=== PATIENT | female | born 2000 | race Caucasian/White ===

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

== ENCOUNTER 2022-04-11 11:05 | Emergency (ER) | payer MEDICAID, SELFPAY ==
[2022-04-11 11:13] VITALS: BP 145/83; PULSE 77; RESP 16; TEMP 36.6; O2SAT 98
--- NOTE | 2022-04-11 11:15 | DI.RAD_ITS ---
Exam(s) XR KNEE RT 4V AP,LAT,JESIKA,PAT EXAM: XR KNEE RT 4V AP,LAT,JESIKA,PAT CLINICAL HISTORY: Right knee pain, r/o fx. TECHNIQUE: 2D digital imaging was performed. COMPARISON: No exams were available for comparison FINDINGS: Four views No evidence of fracture. No effusion. No degenerative changes. No osseous lesions. IMPRESSION: No significant radiographic findings. DATA REPOSITORY: RADIATION DOSE DELIVERED:
--- NOTE | 2022-04-11 12:53 | ED.GENADUL_ITS ---
Discharge Plan Disposition Patient Disposition: HOME Condition: Stable Discharge Details Clinical Impression: Right knee pain Primary Care Provider: Sendy Gaona ED Provider: Ayde Pollard Home Meds and New Rx's Prescriptions: Continued Daily Multiple For Women 18 mg iron-400 mcg-500 mg Ca tablet PO cyanocobalamin (vitamin B-12) 1,000 mcg capsule 1,000 mcg PO DAILY loratadine [Allergy Relief (loratadine)] 5 mg/5 mL solution 10 mg PO DAILY PRN norethindrone ac-eth estradiol [10/13 (21)] 1-20 mg-mcg tablet 1 tab PO DAILY Qty: 63 1RF Nexplanon 68 mg Implant SUBDERMAL Discharge Instructions Instructions: Knee Pain (ED) Additional Instructions: Your x-ray today is reassuring and shows no evidence of acute concerning or significant findings. Your symptoms may be secondary to a knee sprain. It is recommended to rest, ice and elevate your right knee is much as possible. Alternate tylenol and motrin as needed and directed for pain. If your symptoms do not improve or worsen or you develop fever, redness or pain in your lower leg, return to the emergency department for further evaluation. Follow-up with your primary care doctor in 1 week and for referral to orthopedics if your symptoms do not improve or worsen. Return to the emergency department with any worsening or new concerning symptoms. Stand Alone Forms: Work Release Referrals: Edgar Farmer MD [ [facility] STAFF PHYSICIAN] - Discharge Data Discharge Date/Time-TO BE ENTERED AT DEPARTURE: 04/11/22 13:56 Discharge Physician: Adye Pollard Medical Decision Making 22-year-old female presents with right knee pain since yesterday. 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 She took ibuprofen without relief. Patient referred for x-ray upon arrival to triage which was unremarkable. Her knee appears normal to inspection without evidence of trauma, cellulitis or rash. She has no calf tenderness or posterior knee tenderness. She is neurovascularly intact without ligamentous laxity. She was given an Mt wrap and advised to rest, ice and elevate. She was given orthopedic follow-up information as needed. Discussed that her symptoms do not appear consistent with DVT at this time but if her symptoms change or worsen including fever, calf pain, redness or swelling, to return to the emergency department for further evaluation. Medical Records Medical records reviewed: Yes I reviewed the patient's medical records. Imaging Data Radiologic Study: Radiologist's impression: XR KNEE RT 4V AP,LAT,JESIKA,PAT CLINICAL HISTORY: ? Right knee pain, r/o fx. ? TECHNIQUE:? 2D digital imaging was performed. COMPARISON:? No exams were available for comparison FINDINGS: Four views No evidence of fracture.? No effusion.? No degenerative changes.? No osseous lesions. IMPRESSION: No significant radiographic findings. HPI General Mode of arrival: ambulatory . Date/Time Provider Initiated Documentation: 04/11/22 11:18 . Limitations to Documentation: no limitations . Information obtained by: patient . HPI Narrative: Patient is a 22-year-old female with a history of developmental delay and sleep apnea who presents with right knee pain since yesterday. 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 She states the pain is mostly in her right anterior knee but also has some pain in her right lateral thigh. She denies any calf pain. She states it hurts most with weightbearing, walking and bending. She states she took ibuprofen without relief. Related Data Home Medications Medication Instructions Recorded Confirmed etonogestrel 68 mg subdermal subdermal 03/29/20 11/02/20 implant (Nexplanon) cyanocobalamin (vitamin B-12) 1,000 mcg PO DAILY 01/23/22 04/11/22 1,000 mcg capsule loratadine 5 mg/5 mL oral solution 10 mg PO DAILY PRN 01/23/22 04/11/22 (Allergy Relief (loratadine)) multivit-iron 18 mg-folic acid 400 tab PO 01/23/22 mcg-calcium 500 mg-minerals tablet (Daily Multiple For Women) norethindrone acetate 1 mg-ethinyl 1 tab PO DAILY #63 tabs 01/23/22 04/11/22 estradiol 20 mcg tablet () Previous Rx's Medication Instructions Recorded norethindrone acetate 1 mg-ethinyl 1 tab PO DAILY #63 tabs 01/23/22 estradiol 20 mcg tablet () Allergies Allergy/AdvReac Type Severity Reaction Status Date / Time amoxicillin trihydrate Allergy Intermediate RASH Verified 04/11/22 11:16 [From Augmentin] cephalexin Allergy Intermediate RASH Verified 04/11/22 11:16 potassium clavulanate Allergy Intermediate RASH Verified 04/11/22 11:16 [From Augmentin] clindamycin AdvReac Intermediate vomiting Verified 04/11/22 11:16 lactose AdvReac Diarrhea Verified 04/11/22 11:16 General Stated Complaint: Orthopedic WARREN: 4 Review of Systems All systems reviewed & are unremarkable except as noted in HPI and below Constitutional Constitutional: Reports as per HPI, Denies chills and Denies fever(s) Eyes Eyes: Denies blurry vision ENT Ears, Nose, Mouth, and Throat: Denies dizziness, Denies sore throat and Denies throat swelling Cardiovascular Cardiovascular: Denies chest pain and Denies dyspnea Respiratory Respiratory: Denies cough and Denies dyspnea Gastrointestinal Gastrointestinal: Denies abdominal pain, Denies diarrhea and Denies vomiting Genitourinary Genitourinary: Denies hematuria and Denies dysuria Musculoskeletal Musculoskeletal: Denies back pain and Denies numbness Comments: R knee pain Integumentary/Breasts Skin/Breast: Denies lesions and Denies rash Neurologic Neurologic: Denies dizziness, Denies localized weakness and Denies numbness Allergic/Immunologic Allergic/Immunologic: Denies throat swelling PFSH All Active Problems (Updated 04/11/22 @ 13:39 by Ayde Pollard DO) Right knee pain (Acute) Back pain (Acute) Presence of subdermal contraceptive implant (Acute) Contraceptive management (Acute) Dysmenorrhea (Acute) iniitation OCPs Jun 2019 BMI (body mass index), pediatric, 95-99% for age (Acute 06/18/15) Developmental delay (Acute 04/08/13) intellectual disability. IQ testing 69 (01/05) Sleep apnea (Acute 03/18/15) sleep study 12/06 - CPAP Medical History Developmental delay Obstructive sleep apnea Surgical History Tonsillectomy and adenoidectomy Tooth extraction Family History (Updated 01/24/22 @ 09:09 by Jasmine Shea NP) Mother Learning disability Siblings ADHD Brother. 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 Working smoke detector in home: Yes Fire extinguisher in home: Yes Carbon monox detector in home: Yes Firearms in home: No Do you feel safe at home: Yes Do you feel safe in your relationship?: Yes Female Reproductive History Menstrual control method: implanted History History 0 Para Hx # Term Pregnancies Multiple births Hx # Pregnancies Ectopic pregnancies AB induced Hx Number of Living Children AB spontaneous Exam Const General: cooperative, healthy appearing and no acute distress Orientation: alert, awake and oriented x3 HENMT Head: normal to inspection Mouth: oral mucosae normal Eyes General: appearance normal, both eyes and all related structures Neck Neck: normal visual inspection Resp Effort & Inspection: normal respiratory effort and able to speak in complete sentences Auscultation: clear to auscultation bilaterally Cardio Rate: regular rate Skin General skin exam: no rashes or lesions noted Neuro General: patient alert, patient awake and patient oriented x3 Motor: muscle tone normal throughout Extrem Other: She has significant tenderness to palpation of her right anterior knee but her knee appears normal to inspection without erythema, edema, ecchymosis, crepitus, rash or lesions. She has pain with flexion and extension of her knee but no obvious ligamentous laxity. No pain with valgus or varus stress. Negative anterior and posterior drawer test. No tenderness to palpation to posterior knee. Right thigh and calf are normal to inspection. There is no right calf tenderness. Right DP and PT pulses are intact. Psych Appearance: grossly normal Affect: normal affect Course Vital Signs Vital signs: Vital Signs Temperature 97.8 F 04/11/22 11:13 Pulse 77 04/11/22 11:13 Respiratory Rate 16 04/11/22 11:13 Blood Pressure 145/83 H 04/11/22 11:13 Pulse Oximetry 98 04/11/22 11:13 Temperature 97.8 F 04/11/22 11:13 Temperature Source Oral 04/11/22 11:13 Pulse 77 04/11/22 11:13 Respiratory Rate 16 04/11/22 11:13 Respiratory Effort 04/11/22 11:13 Blood Pressure 145/83 H 04/11/22 11:13 Blood Pressure Position Sitting 04/11/22 11:13 Pulse Oximetry 98 04/11/22 11:13 Oxygen Delivery Method Room Air 04/11/22 11:13 Oxygen Flow Rate 0 04/11/22 11:13 Pain Level 8 04/11/22 11:13 Lab/Test Results Lab/Test Results: POC- Test(urine) Negative
--- NOTE | 2022-04-11 13:25 | CMPROGNOTE_ITS ---
- If Service Date Differs Date of service: 04/11/22 Time of Service: 13:26 Care Management Progress Note SBIRT Screen. Pt reports no substance use other than one drink in the past year and no nicotine. Pt screens positive for anxiety (ELIAZAR 11) and depression (PHQ- 9: 13) with no current suicidal ideation. Pt notes coping skills such as taking a deep breath and calming down as well as staying busy with sports and work. Pt notes she has made significant progress in counseling which was or dered by the court. Pt states she feels she is doing well and needs no further support. She states she has the 24 hour crisis line for support as needed.
== END 2022-04-11 13:56 | disposition home or self-care (01) ==
PROVIDERS: Emergency Provider Physician Assistant; PCP Nurse Practitioner Family
DX: M25.561 Pain in right knee (principal)
CPT/HCPCS: 81025; 99283; 73564

== ENCOUNTER 2022-04-28 13:39 | Emergency (ER) | payer OTHER, SELFPAY ==
[2022-04-28 13:43] VITALS: BP 154/100; PULSE 96; RESP 18; TEMP 36.4; O2SAT 99
--- NOTE | 2022-04-28 15:08 | ED.GENADUL_ITS ---
Discharge Plan Disposition Patient Disposition: HOME Condition: Stable Discharge Details Clinical Impression: Second degree burn of right thigh, Second degree burn of great toe of right foot, First degree burn of right thigh Primary Care Provider: Sendy Gaona ED Provider: Ayde Pollard Home Meds and New Rx's Prescriptions: Continued Daily Multiple For Women 18 mg iron-400 mcg-500 mg Ca tablet PO cyanocobalamin (vitamin B-12) 1,000 mcg capsule 1,000 mcg PO DAILY loratadine [Allergy Relief (loratadine)] 5 mg/5 mL solution 10 mg PO DAILY PRN norethindrone ac-eth estradiol [10/13 (21)] 1-20 mg-mcg tablet 1 tab PO DAILY Qty: 63 1RF Nexplanon 68 mg Implant SUBDERMAL Discharge Instructions Instructions: Superficial Burn (ED), Second-Degree Burn (ED), Acute Wound Care (ED) Additional Instructions: Apply the Silvadene cream to the affected areas once daily and cover with dressing. Be sure to keep the dressings clean and dry. Keep your right foot elevated as much as possible. Follow-up with your primary care doctor in 1 week. Return to the emergency department with any worsening or new concerning symptoms such as fever, worsening redness, swelling or pain. Stand Alone Forms: Work Release Discharge Data Discharge Date/Time-TO BE ENTERED AT DEPARTURE: 04/28/22 15:38 Discharge Physician: Ayde Pollard Medical Decision Making 22-year-old female presents with burn to her right anterior leg and right great toe after spilled hot honey glaze at work 2 hours ago. There is an approximate 3 x 4 cm area of erythema consistent with first-degree burn with 2 small blisters consistent with second-degree burn on her right anterior thigh. There are other small 1-2cm areas of erythema consistent with first-degree burn on her right anterior thigh. There is a 3x3 millimeter intact blister to her right great toe on the dorsal surface with minimal surrounding erythema. Offered to debride blister but patient declines. Burn was dressed in Silvadene and nonadherent dressings. She was given Silvadene to go. Her tetanus is up-to-date. She requested a work note. She is advised to keep molina clean and dry and to apply Silvadene once daily. Advised to follow up with the primary care doctor for re-evaluation. Usual and customary return precautions given prior to discharge. Medical Records Medical records reviewed: Yes I reviewed the patient's medical records. HPI General Mode of arrival: ambulatory . Date/Time Provider Initiated Documentation: 04/28/22 13:57 . Limitations to Documentation: no limitations . Information obtained by: patient . HPI Narrative: Patient is a 22-year-old female who presents with burn to the right thigh and right great toe after she spilled hot honey glazed from work on her leg 2 hours ago. Patient states she is concerned about a blister forming. She states her tetanus is up-to-date. Related Data Home Medications Medication Instructions Recorded Confirmed etonogestrel 68 mg subdermal subdermal 03/29/20 11/02/20 implant (Nexplanon) cyanocobalamin (vitamin B-12) 1,000 mcg PO DAILY 01/23/22 04/28/22 1,000 mcg capsule loratadine 5 mg/5 mL oral solution 10 mg PO DAILY PRN 01/23/22 04/28/22 (Allergy Relief (loratadine)) multivit-iron 18 mg-folic acid 400 tab PO 01/23/22 mcg-calcium 500 mg-minerals tablet (Daily Multiple For Women) norethindrone acetate 1 mg-ethinyl 1 tab PO DAILY #63 tabs 01/23/22 04/11/22 estradiol 20 mcg tablet () Previous Rx's Medication Instructions Recorded norethindrone acetate 1 mg-ethinyl 1 tab PO DAILY #63 tabs 01/23/22 estradiol 20 mcg tablet () Allergies Allergy/AdvReac Type Severity Reaction Status Date / Time amoxicillin trihydrate Allergy Intermediate RASH Verified 04/28/22 13:47 [From Augmentin] cephalexin Allergy Intermediate RASH Verified 04/28/22 13:47 potassium clavulanate Allergy Intermediate RASH Verified 04/28/22 13:47 [From Augmentin] clindamycin AdvReac Intermediate vomiting Verified 04/28/22 13:47 lactose AdvReac Diarrhea Verified 04/28/22 13:47 General Stated Complaint: Burn WARREN: 3 Review of Systems All systems reviewed & are unremarkable except as noted in HPI and below Constitutional Constitutional: Reports as per HPI, Denies chills and Denies fever(s) Eyes Eyes: Denies blurry vision ENT Ears, Nose, Mouth, and Throat: Denies dizziness, Denies sore throat and Denies throat swelling Cardiovascular Cardiovascular: Denies chest pain and Denies dyspnea Respiratory Respiratory: Denies cough and Denies dyspnea Gastrointestinal Gastrointestinal: Denies abdominal pain, Denies diarrhea and Denies vomiting Genitourinary Genitourinary: Denies hematuria and Denies dysuria Musculoskeletal Musculoskeletal: Denies back pain and Denies numbness Integumentary/Breasts Skin/Breast: Denies lesions and Denies rash Comments: burn to R thigh and R great toe Neurologic Neurologic: Denies dizziness, Denies localized weakness and Denies numbness Allergic/Immunologic Allergic/Immunologic: Denies throat swelling PFSH All Active Problems (Updated 04/28/22 @ 15:21 by Ayde Pollard DO) Right knee pain (Acute) Second degree burn of right thigh (Acute) Second degree burn of great toe of right foot (Acute) First degree burn of right thigh (Acute) Back pain (Acute) Presence of subdermal contraceptive implant (Acute) Contraceptive management (Acute) Dysmenorrhea (Acute) iniitation OCPs Jun 2019 BMI (body mass index), pediatric, 95-99% for age (Acute 06/18/15) Developmental delay (Acute 04/08/13) intellectual disability. IQ testing 69 (01/05) Sleep apnea (Acute 03/18/15) sleep study 12/06 - CPAP Medical History Developmental delay Obstructive sleep apnea Surgical History Tonsillectomy and adenoidectomy Tooth extraction Family History (Updated 01/24/22 @ 09:09 by Jasmine Shea NP) Mother Learning disability Siblings ADHD Brother. Maternal Grandmother Pancreatic cancer Social History (Updated 01/24/22 @ 08:50 by Jasmine Shea NP) Smoking/Tobacco Use Status: Never Second Hand Exposure: Yes (Mom smokes outside) Smoking risk assessment performed?: Yes Alcohol Intake: current Alcohol Intake frequency: holidays/special occasions only Drug use: Never Substance use type: does not use Household members: other Details: Mom and brother Education Level: high school Details: graduated high school last year Pets and animals: Yes (1 dog 1 cat) Pets and animals: cat(s) and dog(s) Sexually active: No Seatbelt use: always Helmet use: Yes 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 Working smoke detector in home: Yes Fire extinguisher in home: Yes Carbon monox detector in home: Yes Firearms in home: No Do you feel safe at home: Yes Do you feel safe in your relationship?: Yes Female Reproductive History Menstrual control method: implanted History History 0 Para Hx # Term Pregnancies Multiple births Hx # Pregnancies Ectopic pregnancies AB induced Hx Number of Living Children AB spontaneous Exam Const General: cooperative and no acute distress Orientation: alert, awake and oriented x3 HENMT Head: normal to inspection Mouth: oral mucosae normal Eyes General: appearance normal, both eyes and all related structures Neck Neck: normal visual inspection Resp Effort & Inspection: normal respiratory effort and able to speak in complete sentences Cardio Rate: regular rate Neuro General: patient alert, patient awake and patient oriented x3 Motor: muscle tone normal throughout Extrem General: normal to inspection and full ROM Upper/lower leg/hip images: 1. 3 x 4 cm area of erythema with 3 x 3 mm intact blisters in center. Ankle/foot/toe images: 1. 3 x 3 mm intact blister with surrounding erythema approximately 1 cm. Other: There are also a few patchy 1 to 2 cm areas of erythema consistent with first- degree burn on right anterior thigh. Psych Appearance: grossly normal Affect: normal affect Course Vital Signs Vital signs: Vital Signs Temperature 97.5 F L 04/28/22 13:43 Pulse 96 H 04/28/22 13:43 Respiratory Rate 18 04/28/22 13:43 Blood Pressure 154/100 H 04/28/22 13:43 Pulse Oximetry 99 04/28/22 13:43 Temperature 97.5 F L 04/28/22 13:43 Temperature Source Temporal Artery Scan 04/28/22 13:43 Pulse 96 H 04/28/22 13:43 Respiratory Rate 18 04/28/22 13:43 Respiratory Effort Non-Labored 04/28/22 13:48 Blood Pressure 154/100 H 04/28/22 13:43 Blood Pressure Position Sitting 04/28/22 13:43 Pulse Oximetry 99 04/28/22 13:43 Oxygen Delivery Method Room Air 04/28/22 13:43 Oxygen Flow Rate 0 04/28/22 13:43
[2022-04-28] MEDS: Silver sulfaDIAZINE 1% 25 GM TUBE (15:40)
== END 2022-04-28 15:38 | disposition home or self-care (01) ==
PROVIDERS: Emergency Provider Physician Assistant; PCP Nurse Practitioner Family
DX: T24.211A Burn of second degree of right thigh, initial encounter (principal); T25.231A Burn of second degree of right toe(s) (nail), initial encounter; T31.0 Burns involving less than 10% of body surface; X10.1XXA Contact with hot food, initial encounter; Y99.0 Civilian activity done for income or pay
CPT/HCPCS: 16020; 99283; 99284

== ENCOUNTER 2022-12-11 08:25 | Emergency (ER) | payer MEDICAID, SELFPAY ==
[2022-12-11 08:44] VITALS: BP 114/99; PULSE 88; RESP 16; TEMP 36.6; O2SAT 99
--- NOTE | 2022-12-11 09:01 | ED.GENADUL_ITS ---
Discharge Plan Disposition Patient Disposition: Home Condition: Stable Discharge Details Clinical Impression: Acute otitis media, right, URI (upper respiratory infection) Primary Care Provider: Page William ED Provider: Freddie Modi Home Meds and New Rx's Prescriptions: New doxycycline hyclate 100 mg tablet 100 mg PO BID Qty: 14 0RF Continued Daily Multiple For Women 18 mg iron-400 mcg-500 mg Ca tablet 1 tab PO DAILY cyanocobalamin (vitamin B-12) 1,000 mcg capsule 1,000 mcg PO DAILY loratadine [Allergy Relief (loratadine)] 5 mg/5 mL solution 10 mg PO DAILY PRN Discontinued Nexplanon 68 mg Implant SUBDERMAL Patient Comments: patient does currently have this implant Discharge Instructions Instructions: Ear Infection (ED), Upper Respiratory Infection (ED) Additional Instructions: Please take ibuprofen over the counter. Take 600mg by mouth every 6 hours as needed for your discomfort and congestion over the next 5 days. I expect your ear discomfort and symptoms will improve over the next 48 hours. If ear pain worsens and is not improving over the next 2 days, start antibiotic. Complete course of antibiotic if you start it. Please contact your primary care physician to arrange follow-up. Return to the ER immediately for any worsening or new concerning symptoms. Stand Alone Forms: Work Release Referrals: Page William MD [Primary Care Provider] - Medical Decision Making 22-year-old female here with 3 days of right ear fullness, rhinorrhea and sinus congestion. Suspect viral URI. Plan for NSAIDs. If anti-inflammatories do not work, I will provide prescription for antibiotic. Patient has multiple antibiotic allergies. Doxycycline written to be used only as needed if symptoms not improving after 48 hours of NSAIDs. Usual customary discharge instructions were reviewed with the patient. HPI General Mode of arrival: ambulatory . Date/Time Provider Initiated Documentation: 12/11/22 08:49 . Limitations to Documentation: no limitations . Information obtained by: patient . HPI Narrative: 22-year-old female here with chief complaint of ear fullness. Patient notes ear fullness right ear for the past 3 days. She states she hears an echo when she talks. She also has associated sinus congestion and runny nose. Symptoms are mild to moderate. No associated fever. She does have associated mild cough. Related Data Home Medications Medication Instructions Recorded Confirmed cyanocobalamin (vitamin B-12) 1,000 mcg PO DAILY 05/02/22 03/20/23 1,000 mcg capsule loratadine 5 mg/5 mL oral solution 10 mg PO DAILY PRN 01/23/22 12/11/22 (Allergy Relief (loratadine)) multivit-iron 18 mg-folic acid 400 1 tab PO DAILY 01/23/22 12/11/22 mcg-calcium 500 mg-minerals tablet (Daily Multiple For Women) doxycycline hyclate 100 mg tablet 100 mg PO BID #14 tabs 12/11/22 Previous Rx's Medication Instructions Recorded doxycycline hyclate 100 mg tablet 100 mg PO BID #14 tabs 12/11/22 Allergies Allergy/AdvReac Type Severity Reaction Status Date / Time amoxicillin trihydrate Allergy Intermediate RASH Verified 12/11/22 08:47 [From Augmentin] cephalexin Allergy Intermediate RASH Verified 12/11/22 08:47 potassium clavulanate Allergy Intermediate RASH Verified 12/11/22 08:47 [From Augmentin] clindamycin AdvReac Intermediate vomiting Verified 12/11/22 08:47 lactose AdvReac Diarrhea Verified 12/11/22 08:47 General Stated Complaint: EarProblem WARREN: 4 Review of Systems All systems reviewed & are unremarkable except as noted in HPI and below Constitutional Constitutional: Denies fever(s) ENT Ears, Nose, Mouth, and Throat: Reports as per HPI PFSH All Active Problems Acute otitis media, right (Acute) URI (upper respiratory infection) (Acute) Back pain (Acute) Presence of subdermal contraceptive implant (Acute) Contraceptive management (Acute) Dysmenorrhea (Acute) iniitation OCPs Jun 2019 BMI (body mass index), pediatric, 95-99% for age (Acute 06/18/15) Developmental delay (Acute 04/08/13) intellectual disability. IQ testing 69 (01/05) Sleep apnea (Acute 03/18/15) sleep study 12/06 - CPAP Medical History Developmental delay Obstructive sleep apnea Surgical History Tonsillectomy and adenoidectomy Tooth extraction Family History Mother Learning disability Siblings ADHD Brother. Maternal Grandmother Pancreatic cancer Social History Smoking/Tobacco Use Status: Never Second Hand Exposure: Yes (Mom smokes outside) Smoking risk assessment performed?: Yes Alcohol Intake: current Alcohol Intake frequency: holidays/special occasions only Drug use: Never Substance use type: does not use Household members: other Details: Mom and brother Education Level: high school Details: graduated high school last year Pets and animals: Yes (1 dog 1 cat) Pets and animals: cat(s) and dog(s) Sexually active: No Seatbelt use: always Helmet use: Yes Drive intox or ride w/intox truck driver helper: No Working smoke detector in home: Yes Fire extinguisher in home: Yes Carbon monox detector in home: Yes Firearms in home: No Do you feel safe at home: Yes Do you feel safe in your relationship?: Yes Female Reproductive History Menstrual control method: implanted History History 0 Para Hx # Term Pregnancies Multiple births Hx # Pregnancies Ectopic pregnancies AB induced Hx Number of Living Children AB spontaneous Exam Const General: cooperative and no acute distress HENMT Head: normocephalic and atraumatic Ears: external ears normal, TM normal on the left, EAC's normal, mastoids normal, no periauricular adenopathy and TM abnormal erythematous (mild) and with fluid behind the TM on the right Mouth: moist mucous membranes Throat: posterior oropharynx normal Eyes Conjunctivae: normal conjunctivae Sclera: normal sclerae EOM: EOM intact bilaterally Neck Neck: trachea midline and supple Resp Auscultation: clear to auscultation bilaterally, no rales, no rhonchi and no wheezes Cardio Jugular venous pressure: no JVD Rate: regular rate and not tachycardic Rhythm: regular rhythm Course Vital Signs Vital signs: Vital Signs Temperature 36.6 C 12/11/22 08:44 Pulse 88 12/11/22 08:44 Respiratory Rate 16 12/11/22 08:44 Blood Pressure 114/99 H 12/11/22 08:44 Pulse Oximetry 99 12/11/22 08:44 Temperature 36.6 C 12/11/22 08:44 Temperature Source Skin 12/11/22 08:44 Pulse 88 12/11/22 08:44 Respiratory Rate 16 12/11/22 08:44 Respiratory Effort Normal 12/11/22 08:48 Blood Pressure 114/99 H 12/11/22 08:44 Blood Pressure Position Sitting 12/11/22 08:44 Pulse Oximetry 99 12/11/22 08:44 Oxygen Delivery Method Room Air 12/11/22 08:44 Oxygen Flow Rate 0 12/11/22 08:44 Pain Level 0 12/11/22 08:44
[2022-12-11 09:18] LABS: Source Nasal/Nares
[2022-12-11 10:03] LABS: COVID-19 PCR Negative (Negative)
== END 2022-12-11 09:16 | disposition home or self-care (01) ==
PROVIDERS: Emergency Provider Student in an Organized Health Care Education/Training Program
DX: H66.91 Otitis media, unspecified, right ear (principal); J06.9 Acute upper respiratory infection, unspecified; Z20.822 Contact with and (suspected) exposure to COVID-19
CPT/HCPCS: 87635; 99283; 99284

== ENCOUNTER 2022-12-26 12:48 | Outpatient (REF) | payer MEDICAID, SELFPAY ==
[2022-12-27 13:58] LABS: Chlamydia Result Negative (Negative); GC Result Negative (Negative)
== END 2022-12-26 12:49 | disposition home or self-care (01) ==
LOC: LBN 12:48
PROVIDERS: Visit Provider Nurse Practitioner Women's Health
DX: Z11.3 Encounter for screening for infections with a predominantly sexual mode of transmission (principal)
CPT/HCPCS: 87491; 87591

== ENCOUNTER 2023-01-09 13:45 | Outpatient (REF) | payer MEDICAID, SELFPAY ==
--- NOTE | 2023-01-09 13:20 | PAPFT_PTH ---
PATIENT: Arelis Dao LOC: [facility] U#:[id number] AGE/SX: 22/F ROOM: RE01/09/[address]: Jasmine Shea NP : 2000 BED: DIS: 01/09/2023 SPEC #: [id number] RECD: 01/09/23 18:09 STATUS: MORENITA REQ #: [id number] NATHAN: 01/09/23 13:[address]: Shabbir STEWARD,Jasmine DEPT: [facility] Cytology RECD BY: Cathleen Bueno ENTERED: 01/09/23 18:10 SP TYPE: PAPFT OTHR DR: Page William MD Tissues: 1 - CX/ENDOCX FOR PAP SMEARS Procedures: PAP THIN PREP/[facility] Screening Comments: [id number]
== END 2023-01-09 13:46 | disposition home or self-care (01) ==
LOC: LBN 13:45
PROVIDERS: Visit Provider Nurse Practitioner Women's Health
DX: Z12.4 Encounter for screening for malignant neoplasm of cervix (principal)
CPT/HCPCS: 88142

== ENCOUNTER 2024-01-29 11:30 | Outpatient (REF) | payer MEDICAID, SELFPAY ==
[2024-01-30 14:47] LABS: Chlamydia Result Negative (Negative); GC Result Negative (Negative)
== END 2024-01-29 11:31 | disposition home or self-care (01) ==
LOC: LBN 11:30
PROVIDERS: Visit Provider Nurse Practitioner Women's Health
DX: Z11.3 Encounter for screening for infections with a predominantly sexual mode of transmission (principal); B96.89 Other specified bacterial agents as the cause of diseases classified elsewhere
CPT/HCPCS: 87491; 87591

== ENCOUNTER 2025-03-03 14:05 | Outpatient (CLI) | payer MEDICAID, SELFPAY ==
[2025-03-03 12:52] LABS: HCT 41.7 % (36.0-46.0); HGB 13.4 g/dL (11.2-15.7); MCH 27.7 pg (27.0-33.0); MCHC 32.1 % (32.0-36.0); MCV 86 fL (80-95); MPV 10.2 fL (8.0-11.0); Platelet Count 376 10^3/uL (130-400); RBC 4.83 10^6/uL (3.93-5.22); RDW-SD 40.8 fL; WBC 10.11 10^3/uL (4.4-10.8)
[2025-03-03 13:28] LABS: Hemoglobin A1C 5.4 % (<5.7)
[2025-03-03 14:05] LABS: Anion Gap 6.9 mmol/L (3-11); BUN 7 mg/dL (7-18); CO2 28.1 mmol/L (21.0-32.0); CREATININE 0.7 mg/dL (0.55-1.02); Calcium 9.3 mg/dL (8.5-10.1); Chloride 102 mmol/L (98-107); Estimated GFR 123.78 (mL/min/1.73m2); Glucose 83 mg/dL (74-106); Sodium 137 mmol/L (136-145); TSH 2.54 uIU/mL (0.36-3.74)
== END 2025-03-03 14:06 | disposition home or self-care (01) ==
LOC: LBO 14:06
PROVIDERS: Visit Provider Nurse Practitioner Family
DX: Z00.00 Encounter for general adult medical examination without abnormal findings (principal); Z68.41 Body mass index [BMI] 40.0-44.9, adult; G43.009 Migraine without aura, not intractable, without status migrainosus
CPT/HCPCS: 36415; 80048; 85027; 83036; 84443

== ENCOUNTER 2025-03-10 10:08 | Outpatient (REF) | payer MEDICAID, SELFPAY ==
[2025-03-11 12:32] LABS: Chlamydia Result Negative (Negative); GC Result Negative (Negative)
== END 2025-03-10 10:09 | disposition home or self-care (01) ==
LOC: LBN 10:08
PROVIDERS: Visit Provider Nurse Practitioner Women's Health
DX: Z11.3 Encounter for screening for infections with a predominantly sexual mode of transmission (principal)
CPT/HCPCS: 87491; 87591

== ENCOUNTER 2025-09-08 10:45 | Outpatient (REF) | payer MEDICAID, SELFPAY ==
[2025-09-09 12:05] LABS: Chlamydia Result Negative (Negative); GC Result Negative (Negative)
== END 2025-09-08 10:46 | disposition home or self-care (01) ==
LOC: LBN 10:45
PROVIDERS: Visit Provider Nurse Practitioner Women's Health
DX: Z11.3 Encounter for screening for infections with a predominantly sexual mode of transmission (principal)
CPT/HCPCS: 87491; 87591